=== PATIENT | female | born 1980 | race Caucasian/White ===

== ENCOUNTER → 2019-04-05 07:16 | Outpatient (CLI) | payer OTHER, SELFPAY ==
--- NOTE | 2019-04-05 | DI.US.S_ITS ---
PROCEDURE: US ABDOMEN COMPLETE INDICATIONS: ABDOMINAL PAIN TECHNIQUE: Real-time scanning was performed of the abdominal and retroperitoneal organs, with image documentation. COMPARISON: None. FINDINGS: Liver: Liver measures at the upper limits of normal in size (sagittal diameter of the right hepatic lobe measures 17.3 cm) and demonstrates increased echogenicity. There is a 1.1 x 0.9 x 1.0 cm oval circumscribed anechoic cyst with posterior acoustic enhancement in the right hepatic lobe. Gallbladder: No cholelithiasis, pericholecystic fluid, or gallbladder wall thickening. Negative sonographic Norman's sign per furniture duster. Biliary ducts: Intrahepatic bile ducts are non-dilated. Extrahepatic bile duct caliber measures 6 mm. Normal is 6-7 mm or less in diameter, or 10 mm or less post-cholecystectomy. Pancreas: Visualized portions of the pancreas are sonographically normal. Pancreatic body and obscured by overlying bowel gas. Spleen: Spleen is normal in size (10.0 cm in diameter) and homogeneous in echotexture. Kidneys: Kidneys are normal in size and echotexture. Right kidney measures 12.1 cm long; left kidney measures 11.8 cm long. No hydronephrosis or nephrolithiasis. No solid masses. Aorta: Proximal abdominal aorta measures 2.4 cm. Mid abdominal aorta measures 1.7 cm. Distal abdominal aorta measures 1.7 cm. No ultrasound evidence of abdominal aortic aneurysm. Iliacs: Proximal common iliac arteries measure 1.4 cm in diameter bilaterally. No ultrasound evidence of proximal common iliac artery aneurysm. IVC: Intrahepatic inferior vena cava is patent. Miscellaneous: No free abdominal fluid. IMPRESSION: 1. No cholelithiasis or ultrasound evidence of acute cholecystitis. 2. Diffuse increased hepatic echogenicity, which can be seen with hepatic steatosis, hepatic fibrosis/cirrhosis, and/or hepatitis. Dictated by: Ramirez Douglas M.D. on 04/05/2019 at 12:38 Approved by: Ramirez Douglas M.D. on 04/05/2019 at 12:46
== END ==
PROVIDERS: PCP Physician Assistant Medical; Visit Provider Physician Assistant Medical
DX: R10.9 Unspecified abdominal pain (principal)
CPT/HCPCS: 76700